=== PATIENT | male | born 1990 | race Caucasian/White ===

== ENCOUNTER 2020-08-08 11:22 | Emergency (ER) | payer OTHER, SELFPAY ==
[2020-08-08 11:28] VITALS: BP 152/86; PULSE 81; RESP 18; TEMP 36.5; O2SAT 98
--- NOTE | 2020-08-08 11:38 | W.ED.GENAD ---
Discharge Plan Disposition Patient Disposition: HOME Condition: Improving Discharge Details Chief Complaint: Laceration Clinical Impression: Laceration of hand, left Primary Care Provider: Vianca,Local ED Provider: Mannie Ashton Home Meds and New Rx's Prescriptions: No Action No Known Home Meds RF: 0 Discharge Instructions Instructions: Laceration (ED) Additional Instructions: May perform once daily gentle soap and water cleanse, pat dry and replace dressing. Keep covered all out of the house and while cooking. Return in 7 days for removal of stitches. Return sooner if you develop redness, fever, foul-smelling discharge from the wound or any other acute concerns. 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 No weakness and no numbness, tetanus is up-to-date. Wound was anesthetized, irrigated, examined in a bloodless field without evidence of underlying foreign body. Was repaired with interrupted sutures and dressed. Patient stable for discharge she will return for suture removal approximately 1 week. HPI General Mode of arrival: ambulatory. Date/Time Provider Initiated Documentation: 08/08/20 11:32. Limitations to Documentation: no limitations. Information obtained by: patient. History of Present Illness 29 year old M presents to the emergency department with the chief complaint of Left long finger, described as moderate, Quality is described as dull, and is localized to the left and upper extremity. Patient reports no radiation. Patient started experiencing this minute(s) and it has been constant. No relieving factors improve symptom(s), No exacerbating factors reported . Patient did receive the following treatments prior to arrival, none Related Data Home Medications Medication Instructions Recorded Confirmed Unknown [No Known Home Meds] 05/03/15 11/03/15 Allergies Allergy/AdvReac Type Severity Reaction Status Date / Time No Known Allergies Allergy Unverified 08/08/20 11:31 General Stated Complaint: Laceration DINORA: 3 Review of Systems Narrative: Tetanus up-to-date, no fever, no numbness or weakness. 4 systems reviewed and otherwise negative [facility] Social History Smoking/Tobacco Use Status: Current every day Tobacco Type: cigarettes Smoking risk assessment performed?: Yes Alcohol Intake: former Drug use: Occasionally Substance use type: marijuana Do you feel safe at home: Yes Do you feel safe in your relationship?: Yes Exam Narrative Exam Narrative: GEN: awake, alert, oriented 3. Pleasant, well groomed, interactive. HEAD: Normocephalic, atraumatic ENT: Mucous membranes moist, oropharynx unremarkable, External ear exam unremarkable EYES: PERRL, EOMI EXT: Full ROM, no edema, no rash. Left long finger with normal motor and sensory. There is a U-shaped laceration overlying the proximal portion of the proximal phalanx. Neuro: Grossly normal neurologic exam, conversant, interactive. Psych: Speech fluent, thoughts congruent, affect normal Course Vital Signs Vital signs: Vital Signs Temperature 36.5 C 08/08/20 11:28 Pulse 81 08/08/20 11:28 Respiratory Rate 18 08/08/20 11:28 Blood Pressure 152/86 H 08/08/20 11:28 Pulse Oximetry 98 08/08/20 11:28 Temperature 36.5 C 08/08/20 11:28 Temperature Source Temporal Artery Scan 08/08/20 11:28 Pulse 81 08/08/20 11:28 Respiratory Rate 18 08/08/20 11:28 Respiratory Effort Non-Labored 08/08/20 11:32 Blood Pressure 152/86 H 08/08/20 11:28 Blood Pressure Position Sitting 08/08/20 11:28 Pulse Oximetry 98 08/08/20 11:28 Oxygen Delivery Method Room Air 08/08/20 11:28 Oxygen Flow Rate 0 08/08/20 11:28 Pain Level 3 08/08/20 11:28 Procedures Laceration Laceration 1: Site: hand Side (If applicable): left Size (cm): 2.5 Depth: simple, single layer Local Anesthetic: Lidocaine 1% Amount of anesthesia used (mL): 1.5 Pre-repair: wound explored, irrigated extensively and deep structures intact Skin layer closed with: nylon Size (cm): 4-0 Number of sutures: 5
== END 2020-08-08 12:04 | disposition home or self-care (01) ==
PROVIDERS: Emergency Provider Emergency Medicine
DX: S61.213A Laceration without foreign body of left middle finger without damage to nail, initial encounter (principal); W26.0XXA Contact with knife, initial encounter; Y93.89 Activity, other specified; Y92.9 Unspecified place or not applicable; Y99.0 Civilian activity done for income or pay
CPT/HCPCS: 12001

== ENCOUNTER 2020-08-15 13:14 | Emergency (ER) | payer SELFPAY ==
--- NOTE | 2020-08-15 13:16 | ED.GENADUL_ITS ---
Discharge Plan Disposition Patient Disposition: HOME Condition: Stable Discharge Details Clinical Impression: Visit for suture removal Primary Care Provider: Vianca,Local ED Provider: Dilip Morales Home Meds and New Rx's Prescriptions: No Action No Known Home Meds RF: 0 Discharge Instructions Instructions: Stitches Removal (ED) Additional Instructions: The laceration appears to be well-healing. Sutures removed without difficulty. Please watch for new or worsening symptoms and return to the ER for any concerns. Medical Decision Making This is a 29-year-old gentleman, [id number], presenting for left hand laceration suture removal. Tetanus up-to-date. Denies fever, pain, numbness, tingling, weakness, redness. He is asymptomatic. The laceration appears to be well-healing, will remove sutures. 5 sutures removed without difficulty. Patient tolerated well. Medical Records Medical records reviewed: Yes I reviewed the patient's medical records. HPI General Mode of arrival: ambulatory . Date/Time Provider Initiated Documentation: 08/15/20 13:16 . Limitations to Documentation: no limitations . Information obtained by: patient . HPI Narrative: This is a 29-year-old gentleman, [id number], denies significant past medical history. He was seen in the ER on 08-08 for a left hand laceration. Reports the laceration was repaired without difficulty. Presents today for suture removal. He denies any pain, redness, numbness, tingling, weakness. Tetanus up-to-date. No additional concerns or complaints Related Data Home Medications Medication Instructions Recorded Confirmed Unknown [No Known Home Meds] 05/03/15 08/15/20 Allergies Allergy/AdvReac Type Severity Reaction Status Date / Time No Known Allergies Allergy Unverified 08/15/20 13:19 General DINORA: 3 Review of Systems Constitutional Constitutional: Denies fever(s) Musculoskeletal Musculoskeletal: Denies arthralgias, Denies numbness, Denies stiffness and Denies tingling Integumentary/Breasts Skin/Breast: Denies erythema Neurologic Neurologic: Denies numbness and Denies tingling [facility] Social History Smoking/Tobacco Use Status: Current every day Tobacco Type: cigarettes Smoking risk assessment performed?: Yes Alcohol Intake: current Drug use: Occasionally Substance use type: marijuana Do you feel safe at home: Yes Do you feel safe in your relationship?: Yes Exam Const General: cooperative, healthy appearing, comfortable and no acute distress Orientation: alert and awake [facility] Head: normal to inspection, normocephalic and atraumatic Eyes General: appearance normal, both eyes and all related structures Conjunctivae: conjunctivae normal Sclera: sclerae normal Neck Neck: normal visual inspection, full ROM, trachea midline and supple Resp Effort & Inspection: normal respiratory effort and able to speak in complete sentences Cardio Rate: regular rate Rhythm: regular rhythm Skin General skin exam: no rashes or lesions noted Neuro General: patient alert, patient awake, moves all extremities and no focal motor deficits Cognition: normal cognition Speech: speech normal Gait: normal gait Motor: muscle tone normal throughout Sensory Exam: no sensory deficits noted Extrem General: full ROM and capillary refill normal Hand/finger images: 1. There is a well healed laceration, 5 sutures intact. This is over his extensor aspect of his third MCP joint. There is no warmth, erythema, discharge, tenderness. Neuro, vascular, tendon intact. Psych Appearance: grossly normal Mental Status: mental status grossly normal
[2020-08-15 13:17] VITALS: BP 133/65; PULSE 83; RESP 18; TEMP 36.7; O2SAT 97
== END 2020-08-15 13:27 | disposition home or self-care (01) ==
LOC: ER 13:23
PROVIDERS: Emergency Provider Physician Assistant
DX: S61.412D Laceration without foreign body of left hand, subsequent encounter (principal); X58.XXXD Exposure to other specified factors, subsequent encounter; Z48.02 Encounter for removal of sutures

== ENCOUNTER 2023-03-22 17:13 | Emergency (ER) | payer SELFPAY ==
--- NOTE | 2023-03-22 17:15 | DI.CT_ITS ---
Exam(s) CT CHEST W EXAM: CT CHEST W CLINICAL HISTORY: pain and large abscess paraspinal region/trapezius. TECHNIQUE: Multi planar reconstructions were performed. CONTRAST MATERIAL: Omnipaque 350; 75 cc COMPARISON: CR RIGHT CLAVICLE from 05/03/2015 FINDINGS: CHEST: LUNGS: No infiltrates nor pleural effusions. Small 4 millimeter nodule in the right middle lobe evid ent. No findings in trachea and mainstem bronchi. MEDIASTINUM: There is no hilar nor mediastinal adenopathy. Visualized thyroid unremarkable. CARDIAC: Heart size is normal. There is no pericardial effusion.Caliber of the thoracic aorta is wit hin normal limits. VISUALIZED UPPER ABDOMEN:There are no significant adrenal masses. OSSEOUS: No significant osseous lesions.. No fractures. OTHER: In the posterior subcutaneous tissues there is a an abscess slightly right of center in the po sterior lower neck-upper back region. This measures approximately 2.5 x 2.5 by 2.8 cm. Contains gas bubbles. Overlying and surrounding soft tissue stranding. IMPRESSION: 1. Posterior subcutaneous abscess as described above. 2. No pulmonary nor mediastinal findings. Called by myself to ER provider. RADIATION DOSE DELIVERED: 668.8mGy.cm Total DLP DATA REPOSITORY: All CT scans at this facility are submitted to the National Radiology Data Registry (NRDR) Dose Index Registry (DIR) with the [employer] (ACR). RADIATION OPTIMIZATION: All CT scans at this facility use at least one of these dose optimization te chniques: automated exposure control; mA and/or kV adjustment per patient size (includes targeted exa ms where dose is matched to clinical indication); or iterative reconstruction.
[2023-03-22 17:18] VITALS: BP 144/92; PULSE 91; RESP 15; TEMP 37.3; O2SAT 99
[2023-03-22 18:02] LABS: Lactate 0.7 mmol/L (0.6-1.4)
[2023-03-22 18:03] LABS: Abs Immature Grans 0.04 10^3/uL (0.0-0.06); Absolute Eosinophil Count 0.06 10^3/uL (0.0-0.7); Absolute Lymphocyte Count 2.04 10^3/uL (1.2-3.4); Absolute Monocyte Count 0.73 10^3/uL (0.1-0.8); Basophils % 0.6; Eosinophils % 0.5; HCT 41.7 % (40.0-50.0); HGB 14.2 g/dL (13.5-17.5); Immature Grans % 0.3; Lymphocytes % 16.3; MCH 30.9 pg (27.0-33.0); MCHC 34.1 % (32.0-36.0); MCV 91 fL (80-95); MPV 9.5 fL (8.0-11.0); Monocytes % 5.8; Neutrophils % 76.5; Platelet Count 286 10^3/uL (130-400); RBC 4.59 10^6/uL (4.36-5.78); RDW 11.2 % (11.8-14.1); RDW-SD 37.2 fL; WBC 12.54 10^3/uL (4.4-10.8)
[2023-03-22 18:09] LABS: Absolute Basophil Count 0.08 10^3/uL (0.0-0.2); Absolute Neutrophil Count 9.59 10^3/uL (1.2-6.7)
[2023-03-22] MEDS: Normal Saline - Diluent 50 ML VIAL IJ (18:26)
[2023-03-22] MEDS: Omnipaque 350 MG/ML 100 ML BTL IJ (18:28)
[2023-03-22 18:30] LABS: ALT 46 U/L (16-63); AST 31 U/L (15-37); Albumin 3.9 g/dL (3.4-5.0); Alkaline Phosphatase 146 U/L (46-116); Anion Gap 11.7 mmol/L (3-11); BUN 12 mg/dL (7-18); Bilirubin, Total 0.5 mg/dL (0.2-1.0); CO2 25.3 mmol/L (21.0-32.0); Calcium 9.5 mg/dL (8.5-10.1); Chloride 99 mmol/L (98-107); Estimated GFR 102.55 (mL/min/1.73m2); Glucose 92 mg/dL (74-106); Potassium 3.8 mmol/L (3.5-5.1); Sodium 136 mmol/L (136-145); Total Protein 8.1 g/dL (6.4-8.2)
--- NOTE | 2023-03-22 19:31 | ED.GENADUL_ITS ---
Discharge Plan Disposition Patient Disposition: Home Discharge Details Clinical Impression: Sebaceous cyst Primary Care Provider: Vianca,Local ED Provider: Lacy Keith Home Meds and New Rx's Prescriptions: New cephalexin 500 mg capsule 500 mg PO QID 7 Days Qty: 28 0RF Discharge Instructions Additional Instructions: Keep wound clean and dry Take antibiotic as prescribed Yogurt daily while on antibiotic Warm compresses Please follow-up with surgery and return earlier should you have new or worsening complaints Remove within 72 hours, you may need repacking at the discretion of the provider who sees you take ibuprofen and tylenol as prescribed Referrals: Yanet Altamirano DO [OSTEOPATHIC DOCTOR] - Discharge Data Discharge Date/Time-TO BE ENTERED AT DEPARTURE: 03/22/23 19:55 Medical Decision Making 32-year-old male, in no acute distress Large 6 inch abscess noted, suspect sebaceous cyst that is infected, CT was ordered as lesion is just to the right of spine to evaluate for intrathoracic or intraspinal process, case discussed with Dr. Marin, no evidence of migration into muscle or bone at this time CBC and CMP does not show evidence of acute abnormality, afebrile and nontoxic Abscess incision and drainage was performed by me and will refer to surgery for reassessment as patient likely has a remaining capsule Placed on Keflex, warm compresses encouraged, packing placed Return precautions reviewed and patient expressed understanding, discharged home in stable condition, nontoxic with stable vitals HPI General Date/Time Provider Initiated Documentation: 03/22/23 17:25 . HPI Narrative: 32-year-old male presents with abscess on his back present since he was 12 years old, bumped it while doing some work it is now enlarged and very painful. Has had chills. denies any history of IV drug use now Related Data Home Medications Medication Instructions Recorded Confirmed cephalexin 500 mg capsule 500 mg PO QID 7 days #28 caps 03/22/23 Previous Rx's Medication Instructions Recorded cephalexin 500 mg capsule 500 mg PO QID 7 days #28 caps 03/22/23 Allergies Allergy/AdvReac Type Severity Reaction Status Date / Time No Known Allergies Allergy Unverified 03/22/23 17:23 General Stated Complaint: RashLesion DINORA: 3 PFSH All Active Problems (Updated 03/22/23 @ 19:36 by MARTINA Gutiérrez) Sebaceous cyst (Acute) Social History Smoking/Tobacco Use Status: Current every day Tobacco Type: cigarettes Smoking risk assessment performed?: Yes Alcohol Intake: current Alcohol Intake frequency: 3 or more drinks per day Alcohol type: beer Drug use: Occasionally Substance use type: marijuana Housing: apartment Do you feel safe at home: Yes Do you feel safe in your relationship?: Yes Course Vital Signs Vital signs: Vital Signs Temperature 37.3 C 03/22/23 17:18 Pulse 91 H 03/22/23 17:18 Respiratory Rate 15 03/22/23 17:18 Blood Pressure 144/92 H 03/22/23 17:18 Pulse Oximetry 99 03/22/23 17:18 Temperature 37.3 C 03/22/23 17:18 Temperature Source Oral 03/22/23 17:18 Pulse 91 H 03/22/23 17:18 Respiratory Rate 15 03/22/23 17:18 Respiratory Effort Normal 03/22/23 17:21 Blood Pressure 144/92 H 03/22/23 17:18 Blood Pressure Position Sitting 03/22/23 17:18 Pulse Oximetry 99 03/22/23 17:18 Oxygen Delivery Method Room Air 03/22/23 17:18 Oxygen Flow Rate 0 03/22/23 17:18 Pain Level 4 03/22/23 17:18 Lab/Test Results Lab/Test Results: Laboratory Tests Range/Units 03/22/23 03/22/23 03/22/23 17:53 17:53 17:53 WBC (4.4-10.8) 10^3/uL 12.54 H RBC (4.36-5.78) 10^6/uL 4.59 Hgb (13.5-17.5) g/dL 14.2 Hct (40.0-50.0) % 41.7 MCV (80-95) fL 91 MCH (27.0-33.0) pg 30.9 MCHC (32.0-36.0) % 34.1 RDW (11.8-14.1) % 11.2 L Plt Count (130-400) 10^3/uL 286 MPV (8.0-11.0) fL 9.5 Immature Gran % 0.3 Neutrophils % 76.5 Lymphocytes % 16.3 Monocytes % 5.8 Eosinophils % 0.5 Basophils % 0.6 Nucleated RBC % (0.0-0.3) % 0.0 Absolute Neutrophils (1.2-6.7) 10^3/uL 9.59 H Absolute Lymphocytes (1.2-3.4) 10^3/uL 2.04 Absolute Monocytes (0.1-0.8) 10^3/uL 0.73 Absolute Eosinophils (0.0-0.7) 10^3/uL 0.06 Absolute Basophils (0.0-0.2) 10^3/uL 0.08 VBG Lactate (0.6-1.4) mmol/L 0.7 Sodium (136-145) mmol/L 136 Potassium (3.5-5.1) mmol/L 3.8 Chloride (98-107) mmol/L 99 Carbon Dioxide (21.0-32.0) mmol/L 25.3 Anion Gap (3-11) mmol/L 11.7 H BUN (7-18) mg/dL 12 Creatinine (0.70-1.30) mg/dL 1.0 Est GFR (CKD-EPI 2020) (mL/min/1.73m2) 102.55 Glucose (74-106) mg/dL 92 Calcium (8.5-10.1) mg/dL 9.5 Total Bilirubin (0.2-1.0) mg/dL 0.5 AST (15-37) U/L 31 ALT (16-63) U/L 46 Alkaline Phosphatase (46-116) U/L 146 H Total Protein (6.4-8.2) g/dL 8.1 Albumin (3.4-5.0) g/dL 3.9 Procedures Abscess I/D Site: Back Side (if applicable): Right Sedation/analgesia: None Local Anesthetic: Lidocaine 1% and With Epi Amount of anesthesia used (mL): 8 Technique: Incised with #11 Blade Amount of fluid expressed (mL): 20 Irrigation: Yes Packing used?: Iodoform PAWSS Have you Been Recently Intoxicated or Drunk Within the Last 30 days?: No Have you Ever Experienced Previous Episodes of Alcohol Withdrawal?: No Have you ever Experienced Withdrawal Seizures?: No Have you ever Experienced Delirium Tremens(DT)s?: No Have you ever undergone Alcohol Rehabilitation Treatment (i.e, inpt ot outpatient treatment programs)?: No Have you ever Experienced Blackouts?: No Have you ever Combined Alcohol with other Downers within the last 90 days?: No Have you ever Combined Alcohol with any other Substance of Abuse during the last 90 days?: No Result: 0
[2023-03-22 19:53] VITALS: BP 137/89; PULSE 85; RESP 16; O2SAT 100
[2023-03-22] MEDS: Cephalexin 500 MG CAP, 4 CAPS/BTL PO (19:53)
== END 2023-03-22 19:55 | disposition home or self-care (01) ==
PROVIDERS: Emergency Provider Physician Assistant
DX: L72.3 Sebaceous cyst; F17.200 Nicotine dependence, unspecified, uncomplicated
CPT/HCPCS: 10060; 80053; 99285; 71260; 83605; 85025; J3490

== ENCOUNTER 2023-03-26 18:24 | Emergency (ER) | payer SELFPAY ==
[2023-03-26 18:27] VITALS: BP 178/93; PULSE 74; RESP 18; TEMP 36.4; O2SAT 99
--- NOTE | 2023-03-26 18:42 | ED.GENADUL_ITS ---
Discharge Plan Disposition Patient Disposition: Home Condition: Stable Discharge Details Clinical Impression: Abscess packing removal Primary Care Provider: ViancaLocal ED Provider: Maribel Prieto Home Meds and New Rx's Prescriptions: No Action cephalexin 500 mg capsule 500 mg PO QID 7 Days Qty: 28 0RF Discharge Instructions Instructions: Abscess Follow-up (ED) Additional Instructions: Additional packing was placed in wound today. Please follow up with general surgery as previously instructed. Continue taking the antibiotics as prescribed. Call Tuesday morning to make appointment with General surgery. Follow up with primary care provider in 3-5 days. Return to ED sooner if any worsening or concerns. Increase oral fluids. Please take Tylenol or Ibuprofen with food every 4-6 hours as needed for pain and swelling. Stand Alone Forms: Work Release Referrals: Yanet Altamirano DO [OSTEOPATHIC DOCTOR] - 3 days Medical Decision Making 32 year old female presents to the ED for wound rechack and packing change. Patient was seen on the third which was 4 days ago and packing placed in I&D of an abscess is on cephalexin at this time. He is awaiting follow-up with general surgery. Packing removed an additional quarter inch iodoform packing placed. Patient tolerated with some difficulty. Encouraged him to continue to follow-up with general surgery and take the antibiotic. Patient verbalized understanding. Packing removed and replaced with 1/4 inch iodoform packing. Given discharge instructions and referral for general surgery follow up. This text was generated using Needation system, please disregard any oddities of phrase or misspellings. Medical Records Medical records reviewed: Yes I reviewed the patient's medical records. HPI General Mode of arrival: ambulatory . Date/Time Provider Initiated Documentation: 03/26/23 18:27 . Limitations to Documentation: no limitations . Information obtained by: patient, RN notes reviewed and old records reviewed . HPI Narrative: 32 year old female presents to the ED for wound rechack and packing change. Patient was seen on the third which was 4 days ago and packing placed in I&D of an abscess is on cephalexin at this time. He is awaiting follow-up with general surgery. Packing removed an additional quarter inch iodoform packing placed. Patient tolerated with some difficulty. Encouraged him to continue to follow-up with general surgery and take the antibiotic. Patient verbalized understanding. Related Data Home Medications Medication Instructions Recorded Confirmed cephalexin 500 mg capsule 500 mg PO QID 7 days #28 caps 03/22/23 03/26/23 Previous Rx's Medication Instructions Recorded cephalexin 500 mg capsule 500 mg PO QID 7 days #28 caps 03/22/23 Allergies Allergy/AdvReac Type Severity Reaction Status Date / Time No Known Allergies Allergy Unverified 03/26/23 18:30 General Stated Complaint: Recheck DINORA: 4 Review of Systems All systems reviewed & are unremarkable except as noted in HPI and below PFSH All Active Problems (Updated 03/26/23 @ 18:46 by Maribel Prieto NP) Sebaceous cyst (Acute) Abscess packing removal (Acute) Social History Smoking/Tobacco Use Status: Current every day Tobacco Type: cigarettes Smoking risk assessment performed?: Yes Alcohol Intake: current Alcohol Intake frequency: 3 or more drinks per day Alcohol type: beer Drug use: Occasionally Substance use type: marijuana Housing: apartment Do you feel safe at home: Yes Do you feel safe in your relationship?: Yes Exam Back/Spine/Pelvis Back/spine/pelvis image: 2 1. Small incision noted with packing in place, this was removed and packing changed out. Course Vital Signs Vital signs: Vital Signs Temperature 36.4 C L 03/26/23 18:27 Pulse 74 03/26/23 18:27 Respiratory Rate 18 03/26/23 18:27 Blood Pressure 178/93 H 03/26/23 18:27 Pulse Oximetry 99 03/26/23 18:27 Temperature 36.4 C L 03/26/23 18:27 Temperature Source Skin 03/26/23 18:27 Pulse 74 03/26/23 18:27 Respiratory Rate 18 03/26/23 18:27 Respiratory Effort Normal 03/26/23 18:29 Blood Pressure 178/93 H 03/26/23 18:27 Blood Pressure Position Sitting 03/26/23 18:27 Pulse Oximetry 99 03/26/23 18:27 Oxygen Delivery Method Room Air 03/26/23 18:27 Oxygen Flow Rate 0 03/26/23 18:27 Pain Level 5 03/26/23 18:27
--- NOTE | 2023-03-26 18:49 | NUR.NOTE ---
Referral faxed to [facility] to f/u in 3-5 days for upper back abscess that was I&D'd.Nursing Note:
== END 2023-03-26 18:52 | disposition home or self-care (01) ==
PROVIDERS: Emergency Provider Registered Nurse Emergency
DX: Z48.00 Encounter for change or removal of nonsurgical wound dressing (principal)
CPT/HCPCS: 99281; 99282